=== PATIENT | female | born 1955 | race Caucasian/White ===

== ENCOUNTER → 2017-05-01 | Day surgery (SDC) | payer BC ==
[~2017-05-01] VITALS: Ht 162.6 cm; Wt 92.0 kg
[~2017-05-01] MED LIST: ALBU0.08 INH; ASPI81TA28 PO; BNC4025 PO; HYDR25TA4 PO; IRBE1TAB50 PO; LIDOCAINE HCL 2% 2 ML VIAL (20MG/ML) ONE; NITR-5 PO; OMEP1POW2 PO; PANT40TA PO; PROPOFOL IV EMULSION 10 MG/ML 20 ML VIAL IV ONE; SIMV40TA2 PO; SODIUM CHLORIDE 0.9% 500ML 500 ML IV ONE
[2017-05-01 10:23] VITALS: Ht 162.6 cm; Wt 92.0 kg
--- NOTE | 2017-05-01 11:31 | Endo History and Physical ---
History & Physical Date of Service: May 01, 2017. Chief Complaint: Screening Referring Physician: Dr. Weathers History of Present Illness 62 yo CF who presents for screening colonoscopy. Past Surgical History Hx Cardiac Surgery: No Hx Internal Defibrillator: No Hx Pacemaker: No Hx Abdominal Surgery: Yes (tubal ligation) Hx of Implantable Prosthesis: No Hx Post-Op Nausea and Vomiting: No Hx Cancer Surgery: No Hx Thoracic Surgery: No Hx Orthopedic: Yes (right anklle ganglion) Hx Urinary Tract Surgery: No Family History Polyp Social History Smoking Status: Never Smoker Hx Substance Use: No Hx Alcohol Use: Yes Allergies Coded Allergies: No Known Allergies (Verified , 05/01/17) Current Medications Reported Home Medications Medications Dose Route/Sig Max Daily Dose Days Date Category Aspirin Ec (Aspirin) 81 Mg Tab 81 Mg PO DAILY 05/01/17 Reported Hctz (Hydrochlorothiazide) 25 Mg Tab 1 Tab PO DAILY 30 05/01/17 Reported Irbesartan 300 Mg Tab 1 Tab PO DAILY 30 05/01/17 Reported Omeprazole (Omeprazole (Bulk)) 1 Pow Pow 20 Mg PO DAILY 05/01/17 Reported Proventil 0.083% 2.5MG/3ML (Albuterol Sulfate) Nebu 1 Inha INH 04/10/10 Reported Vital Signs Weight (Kilograms): 92 Height (Feet): 5 Height (Inches): 4 Date Time Temp Pulse Resp B/P (MAP) Pulse Ox O2 Delivery O2 Flow Rate FiO2 05/01/17 10:30 36.7 84 18 169/80 (109) 97 Room Air Physical Exam General Appearance: WD/WN, no apparent distress Respiratory/Chest: Auscultation: breath sounds normal Cardiovascular: Heart Auscultation: RRR Abdomen: Bowel Sounds: normal Inspection & Palpation: soft, non-distended, no tenderness, guarding & rebound Assessment and Plan Assessment: 62 yo CF who presents for screening colonoscopy. Plan: Proceed with colonoscopy.
--- NOTE | 2017-05-01 12:11 | Anesthesiology Progress Note ---
Anesthesia Post Op Note Date & Time May 01, 2017 at 12:10 Vital Signs Pain Intensity: 0 Vital Signs Past 12 Hours Date Time Temp Pulse Resp B/P (MAP) Pulse Ox O2 Delivery O2 Flow Rate FiO2 05/01/17 11:50 75 18 120/78 (92) 98 Room Air 05/01/17 10:30 36.7 84 18 169/80 (109) 97 Room Air Notes Mental Status: alert / awake / arousable, participated in evaluation Pt Amnestic to Procedure: Yes Nausea / Vomiting: adequately controlled Pain: adequately controlled Airway Patency, RR, SpO2: stable & adequate BP & HR: stable & adequate Hydration State: stable & adequate Anesthetic Complications: no major complications apparent
--- NOTE | 2017-05-01 12:11 | GI REPORT ---
Procedure Date: 05/01/2017 11:30 AM Procedure: Colonoscopy Indications: Screening for colorectal malignant neoplasm Medicines: Monitored Anesthesia Care Complications: No immediate complications. Estimated Blood Loss: Estimated blood loss: none. Procedure: Pre-Anesthesia Assessment: - Prior to the procedure, a History and Physical was performed, and patient medications and allergies were reviewed. The patient's tolerance of previous anesthesia was also reviewed. The risks and benefits of the procedure and the sedation options and risks were discussed with the patient. All questions were answered, and informed consent was obtained. Prior Anticoagulants: The patient has taken aspirin, last dose was 1 day prior to procedure. ASA Grade Assessment: II - A patient with mild systemic disease. After reviewing the risks and benefits, the patient was deemed in satisfactory condition to undergo the procedure. After I obtained informed consent, the scope was passed under direct vision. Throughout the procedure, the patient's blood pressure, pulse, and oxygen saturations were monitored continuously. The scope was introduced through the anus and advanced to the terminal ileum. The colonoscopy was performed without difficulty. The patient tolerated the procedure well. The quality of the bowel preparation was good. The terminal ileum, ileocecal valve, appendiceal orifice, and rectum were photographed. Findings: A 4 mm polyp was found in the ascending colon. The polyp was sessile. The polyp was removed with a cold snare. Resection and retrieval were complete. Multiple small-mouthed diverticula were found in the sigmoid colon. Non-bleeding internal hemorrhoids were found during retroflexion. The hemorrhoids were small. Impression: - One 4 mm polyp in the ascending colon, removed with a cold snare. Resected and retrieved. - Diverticulosis in the sigmoid colon. - Non-bleeding internal hemorrhoids. Recommendation: - Resume previous diet. - Continue present medications. - Repeat colonoscopy for surveillance based on pathology results. - Return to primary care physician as previously scheduled. Benjamín Sheridan DO 05/01/2017 12:11:02 PM This report has been signed electronically. Note Initiated On: 05/01/2017 11:30 AM I attest to the content of the Intraoperative Record and orders documented therein, exceptions below
--- NOTE | 2017-05-01 12:12 | Discharge Instructions ---
Endoscopy Patient Instructions Date / Procedure(s) Performed May 01, 2017. Colonoscopy Allergy Information Coded Allergies: No Known Allergies (Verified , 05/01/17) Discharge Date / Findings May 01, 2017. Colon polyp Diverticulosis Internal hemorrhoids Medication Instructions OK to resume all medications today as prescribed Reported Home Medications Medications Dose Route/Sig Max Daily Dose Days Date Category Aspirin Ec (Aspirin) 81 Mg Tab 81 Mg PO DAILY 05/01/17 Reported Hctz (Hydrochlorothiazide) 25 Mg Tab 1 Tab PO DAILY 30 05/01/17 Reported Irbesartan 300 Mg Tab 1 Tab PO DAILY 30 05/01/17 Reported Omeprazole (Omeprazole (Bulk)) 1 Pow Pow 20 Mg PO DAILY 05/01/17 Reported Proventil 0.083% 2.5MG/3ML (Albuterol Sulfate) Nebu 1 Inha INH 04/10/10 Reported Provider Instructions Activity Restrictions - No exercising or heavy lifting for 24 hours. - Do not drink alcohol the day of the procedure. - Do not drive a car or operate machinery until the day after the procedure. - Do not make any important decisions or sign important papers in 24 hours after the procedure. Following Day: - Return to full activity which may include returning to work/school. Diet Start your diet with liquids and light foods (jello, soup, juice, toast). Then eat your usual diet if not nauseated. Treatment For Common After Affects For mild abdominal pain, bloating, or excessive gas: - Rest - Eat lightly - Lie on right side Follow-Up Information Follow-up with Dr. Weathers as scheduled Anesthesia Information What You Should Know You have had a procedure that required some medicine to reduce anxiety and discomfort. This treatment is called moderate sedation. After receiving the treatment, you may be sleepy, but you will be able to breathe on your own. The effects of the treatment may last for several hours. Follow these instructions along with Activity/Diet recommendations noted above: * Do NOT do anything where dizziness or clumsiness would be dangerous. * Rest quietly at home today, then you can be up and about tomorrow. * Have a responsible person stay with you the rest of today. * You may have had an I.V. today. If so, you may take the dressing off later today. Recommendations Call your doctor if: * Trouble breathing * Continuous vomiting for more than 24 hours * Temperature above 101 degrees * Severe abdominal pain or bloating * Pain not relieved by pain medicine ordered * There is increased drainage or redness from any incision * A large amount of rectal bleeding greater than 2-3 tablespoons. (If you had a polyp/s removed or have hemorrhoids, a small amount of blood - from the rectum is to be expected.) * You have any unanswered questions or concerns. IN THE EVENT OF A SERIOUS EMERGENCY, GO TO THE NEAREST EMERGENCY ROOM Your discharge instructions were prepared by provider Benjamín Sheridan. Patient Instructions Signature Page Sonja Grant Patient (or Guardian) Signature/Date: I have read and understand the instructions given to me by my caregivers. Caregiver/RN/Doctor Signature/Date: The above-named patient and/or guardian has received patient instructions on this date. + Original Patient Signature Page (only) stays with chart. Please make copy for patient.
[2017-05-01 12:33] VITALS: BP 163/74; PULSE 74; O2SAT 96
== END | disposition home or self-care (01) ==
LOC: C.GI 10:03
PROVIDERS: ATTEND Internal Medicine
DX: Z12.11 Encounter for screening for malignant neoplasm of colon (principal); D12.2 Benign neoplasm of ascending colon; Z83.71 Family history of colonic polyps; K57.30 Diverticulosis of large intestine without perforation or abscess without bleeding; K64.8 Other hemorrhoids